=== PATIENT | female | born 1970 | race Caucasian/White ===

== ENCOUNTER 2024-12-15 09:44 | Outpatient (REF) | payer OTHER, SELFPAY ==
[2024-12-15 13:43] LABS: MANUAL DIFF FLAG NO
[2024-12-15 13:52] LABS: Basophils Absolute Auto 0.1 X10*3/uL (0.0-0.2); Basophils Percent Auto 1.8 % (0-2); Eosinophils Absolute Auto 0.1 X10*3/uL (0.0-0.4); Hematocrit 46.7 % (37.0-47.0); Hemoglobin 15.2 g/dl (12.0-16.0); Imm Gran Abs Auto 0.01 X10*3/uL (0.00-0.03); Imm Gran Pct Auto 0.2 % (0.0-0.4); Lymphocytes Absolute Auto 1.8 X10*3/uL (1.2-4.9); Lymphocytes Percent Auto 38.9 % (20-40); Mean Corpuscular HGB Conc 32.5 g/dl (31.0-35.0); Mean Corpuscular Hemoglobin 30.9 pg (27.0-33.0); Mean Corpuscular Volume 94.9 fL (80.0-98.0); Mean Platelet Volume 11.7 fL (9.4-12.3); Monocytes Absolute Auto 0.4 X10*3/uL (0.1-1.2); Monocytes Percent Auto 8.4 % (2-11); Neutrophils Absolute Auto 2.2 x10*3/uL (2.0-8.3); Neutrophils Percent Auto 48.7 % (45-73); Platelet Count 156 X10*3/uL (160-400); Red Blood Count 4.92 X10*6/uL (4.20-5.50); Red Cell Distribution Width 12.1 % (11.0-16.0); White Blood Count 4.5 X10*3/uL (4.8-10.8)
[2024-12-15 14:17] LABS: Alanine Aminotransferase 31 U/L (0-31); Anion Gap 8 (12-20); Aspartate Amino Transferase 38 U/L (5-31); Blood Urea Nitrogen 9 mg/dL (9-16); Calcium 10.1 mg/dL (8.4-10.2); Carbon Dioxide 28 mmol/L (22-29); Chloride 108 mmol/L (96-108); Cholesterol 282 mg/dL (<200); Estimated Glomerular Filt Rate > 60; Glucose Fasting 81 mg/dL (60-99); HDL Cholesterol 89 mg/dL (>40); LDL Cholesterol Calculated 178 mg/dL (<100); Potassium 4.2 mmol/L (3.3-5.1); Sodium 140 mmol/L (135-145); Triglycerides 75 mg/dL (<150)
[2024-12-15 14:21] LABS: Vitamin D 25-OH Total 93.2 ng/mL (>30)
== END 2024-12-15 09:45 | disposition home or self-care (01) ==
LOC: HO.HMGCLDS 09:44
PROVIDERS: PCP Internal Medicine; Visit Provider Internal Medicine
DX: Z00.01 Encounter for general adult medical examination with abnormal findings (principal); Z13.89 Encounter for screening for other disorder; E78.5 Hyperlipidemia, unspecified; Z78.0 Asymptomatic menopausal state; Z85.828 Personal history of other malignant neoplasm of skin; Z87.42 Personal history of other diseases of the female genital tract
CPT/HCPCS: 36415; 80048; 80061; 82306; 84450; 84460; 85025; 96127

== ENCOUNTER 2025-01-06 15:19 | Outpatient (REF) | payer OTHER, SELFPAY | END 2025-01-06 15:20 | disposition home or self-care (01) | LOC: HO.MAMMO 15:19 | PROVIDERS: PCP Internal Medicine; Visit Provider Internal Medicine | DX: Z12.31 Encounter for screening mammogram for malignant neoplasm of breast (principal) | CPT/HCPCS: 77063; 77067 ==

== ENCOUNTER → 2025-01-06 15:30 | Outpatient (BNV) | payer OTHER, SELFPAY | PROVIDERS: PCP Internal Medicine; Visit Provider Internal Medicine | DX: Z12.31 Encounter for screening mammogram for malignant neoplasm of breast (principal) | CPT/HCPCS: 77063; 77067 ==

== ENCOUNTER 2025-04-07 09:34 | Outpatient (REF) | payer OTHER, SELFPAY ==
[2025-04-13 15:23] LABS: HPV Genotype 16 Negative (Negative); HPV Genotype 18 Negative (Negative); HPV High Risk Negative (Negative)
== END 2025-04-07 09:35 | disposition home or self-care (01) ==
LOC: HO.LNP 09:34
PROVIDERS: PCP Internal Medicine; Visit Provider Advanced Practice Midwife
DX: Z01.419 Encounter for gynecological examination (general) (routine) without abnormal findings (principal); Z11.51 Encounter for screening for human papillomavirus (HPV); Z87.42 Personal history of other diseases of the female genital tract
CPT/HCPCS: 87626; 88175

== ENCOUNTER 2025-04-07 09:34 | Outpatient (AMB) | payer OTHER, SELFPAY ==
--- NOTE | 2025-04-07 09:37 | A.OFFVIS_ITS ---
Vital Signs 04/07/25 09:38 Height 5 ft 4 in Weight 139 lb BMI 23.9 BP 110/70 Intake Visit Reasons: New patient/Annual Intake Note: Last pap unsure maybe 1 abn pt c/o mood swings, hotflashes Game Tester: Game Tester Present (Lynda) Allergies No Known Allergies Allergy (Verified 04/07/25 09:38) HPI Comments Details: She is a postmenopausal woman presenting for her new patient annual vision care associate examination. She is doing well with vision care associate concerns: leakage of urine, full feeling after voiding. Urgent bowel movements. Admits to feeling depressed at times, isolated with working from home. Currently not sexually active in many year. Denies any vaginal dryness or irritation. STI testing offered; she declines. Attempting to eat a healthy diet, avoids dairy products, and stays active with exercise-hiking. Last pap smear; unknown, many years ago. Last mammogram; 2024. Colonoscopy is UTD. Denies any family history of ovarian or colon cancer. FH breast cancer. PFSH Medical History Fatigue History of Vaccine refused by patient Hx of abnormal cervical Pap smear Skin cancer screening Hx of basal cell carcinoma Dyslipidemia Surgical History Hx of wisdom tooth extraction Hx of colonoscopy Family History Mother Colorectal cancer, Onset Age: 77 Father Heart attack, Onset Age: 50 Maternal Grandmother Uterine cancer Family/Other History of breast cancer Paternal Aunt History of breast cancer Social History Housing: House Alcohol intake: current Alcohol intake frequency: holidays/special occasions only Patient Tobacco Use Status: Never used Tobacco e-Cigarette/Vaping Use: Never Used service: No Current occupational status: employed Current occupation: grants admin @ [employer] Current occupational exposures/hazards: No Cognitive needs: No Hearing needs: No Vision needs: Yes Female Reproductive History Menstrual Total pregnancies: 1 Full term: 0 Number of Living Children: 0 Ab induced: 1 History of abnormal pap smear: Yes Date of Mammogram: 01/06/25 (Birad 1) Review of Systems Const All systems reviewed & are unremarkable except as noted in HPI and below Reports as per HPI Eyes Reports no additional complaints ENT Reports no additional complaints Card Reports no additional complaints Resp Reports no additional complaints GI Reports as per HPI and Reports no additional complaints Reports as per HPI Musc Reports no additional complaints Skin/Breast Reports as per HPI Neuro Reports no additional complaints Psych Reports no additional complaints Endo Reports no additional complaints Eric/Lymph Reports no additional complaints Aller/Immun Reports no additional complaints Physical Exam Vital Signs: Last Vital Signs BP 110/70 04/07/25 09:38 BMI result Body Mass Index 23.9 Const General: cooperative, healthy appearing, no acute distress, well developed and alert Orientation/consciousness: patient oriented x3 HEENT Head: Yes normal to inspection Eyes General: appearance normal, both eyes and all related structures Neck Neck: Yes normal visual inspection Thyroid: Thyroid normal Chest Chest palpation & inspection: normal inspection of the chest and other (no puckering, dimpling, peau de orange, retraction, discharge, masses) Breast/axilla inspection: normal inspection of the breasts Breast/axilla palpation: normal palpation of the breasts Resp Effort & Inspection: normal respiratory effort GI Inspection: Yes normal to inspection Palpation (GI): Soft to palpation Rectal Exam - Female: deferred General: Yes bladder normal to palpation External Female Exam: normal external appearance and normal appearance of the urethra Speculum Exam - Vagina: normal appearance of the vagina, normal palpation, normal vaginal discharge and vagina atrophic Speculum Exam - Cervix: normal appearance of the cervix, normal palpation and Other cervical findings present (Atrophic changes bled slightly with Pap) Bimanual exam- vagina & uterus: normal bimanual exam, normal palpation, uterine size normal, bladder normal to palpation, normal palpation and non-tender Bimanual Exam- Adnexa, other: no masses Skin General skin exam: no rashes or lesions noted Rashes: no rashes Neuro General: patient oriented x3 Cognition (Neuro): normal cognition Extrem General: Yes normal to inspection Psych Attitude: cooperative Thought process: Normal thought process present Assessment & Plan Assessment & Plan (1) Hx of abnormal cervical Pap smear: Code(s): Z87.42 - Personal history of other diseases of the female genital tract Category: Medical Plan: Pap smear obtained today, await results for plan of care. (2) Encounter for well woman exam with routine gynecological exam: Code(s): Z - Encounter for gynecological examination (general) (routine) without abnormal findings Category: Medical Plan Discussed: Current recommendations for pap smears per ASCCP guidelines. Pap obtained. Breast awareness, periodic self breast exams and yearly mammogram. Maintain a healthy lifestyle, well balanced diet including Calcium 1,200 mg and Vitamin D 600 IU daily, and routine exercise. Avoid dietary triggers modified diet based on reactions and concerns. Handouts and calcium food sources, calcium and exercise given. Seeking a therapist be a use of psychology today, checking insurance coverage and notify my office if she needs a referral. Self care and nurturing, outside activities, involving herself with community and friends. Contact the office with any postmenopausal bleeding. Consider Urology consult and/or pelvic floor therapy for urinary symptoms. Patient verbalizes understanding and agrees to the plan of care. She was given opportunity to ask questions and all questions were answered to the best of my ability. RTO in 1 year for annual vision care associate exam. This note is constructed using voice recognition software. While every effort has been made to ensure accuracy, marketing financial analyst errors may have been included. Orders: Orders Vitamin D 25-OH (D2 and D3) Today R53.83 - Other fatigue HPV High risk Today Z - Encounter for gynecological examination (general) (routine) without abnormal findings, Z87.42 - Personal history of other diseases of the female genital tract Pap Smear Today Z - Encounter for gynecological examination (general) (routine) without abnormal findings, Z87.42 - Personal history of other diseases of the female genital tract Coding Level of Care Code New Pt Prev Care 40-64y(65663) Diagnoses Hx of abnormal cervical Pap smear Z87.42 Encounter for well woman exam with routine gynecological exam Z
[2025-04-07 09:38] VITALS: BP 110/70; BMI 23.9
== END 2025-04-07 10:41 | disposition home or self-care (01) ==
LOC: HO.HWS 09:34
PROVIDERS: PCP Internal Medicine; Visit Provider Advanced Practice Midwife
DX: Z01.419 Encounter for gynecological examination (general) (routine) without abnormal findings (principal); Z87.42 Personal history of other diseases of the female genital tract
CPT/HCPCS: 99386; 99459

== ENCOUNTER 2025-06-16 06:29 | Outpatient (REF) | payer OTHER, SELFPAY ==
--- OUTSIDE RECORDS SUMMARY | 2025-06-16 06:32 | XMS_ITS | Encounter Summary ---
Author Organization [facility] Address [address] [place] [phone] Phone Care Team Providers Care Ground Host/Hostess Name Role Phone Bessie Justice CNP Unavailable [phone] Bessie Justice CNP Primary Care Provider + [phone] Mellisa Norman MD Unavailable [phone] Darleen Gordon CNP Primary Care Provider [phone] Encounter Details Date Type Department Care Team (Late st Contact Info) Description 02/10/2023 Procedure Pass [facility] - [address] [place] [address] Social History Tobacco Use Types Packs/Day Years Used Date Smoking Tobacco: Never Smokeless Tobacco: Never Alcohol Use Standard Drinks/Week Comments Yes 1 (1 standard drink = 0.6 oz pur e alcohol) Child or Family Care Answer Date Record ed Do you have problems with on e of the following making it difficult for you to work, study, or receive health care? No 03/27/2022 Education Answer Date Recorded Are you interested in help w ith more adult education (for example, completing high school, GED, job training, learning the [place] language, technical skills, or developing parenting skills)? Yes 03/27/2022 Food Answer Date Recorded Within the past 6 months we worried whether our food would run out before we got money to buy more. Never True 03/27/2022 Within the past 6 months the food we bought just didn't last and we didn't have enough money to get more. Never True Residential Stability Answer Date Recor ded What is your housing situation today? I have easton berger 03/27/2022 How many times have you move d in the past 12 months? Zero (I did not move) 03/27/2022 Paying for Meds Answer Date Recorded Do you have trouble paying for medicines? No 03/27/2022 Paying Utility Bills Answer Date Record ed Do you have trouble paying your heating or elect ricity bill? No 03/27/2022 Transportation Answer Date Recorded Has the lack of transportati on kept you from medical appointments or from getting medications? No 03/27/2022 Unemployment Answer Date Recorded Are you currently unemployed or working on a part-time or temporary basis, and looking for work? No 03/27/2022 Comments No Sex and Gender Information Value Date Recorded Sex Assigned at Not on file Legal Sex Female 6:21 PM EST Gender Identity Not on file Sexual Orientation Not on file documented as of this encounter Plan of Treatment Not on file documented as of this encounter Visit Diagnoses Not on filedocumented in this encounter Additional Health Concerns Assessment Noted Time PHQ-2 Depression Total Score: 0 03/27/20 22 3:27 PM EDT documented as of this encounter Care Teams Ground Host/Hostess Relationship Specialty Start Date End Date Bessie Justice CNP [address] [place] [phone] [email or web address] PCP - General Family Medicine 08/12/22 02/05/24 Darleen Gordon CNP [address] [place] [address] [address] [place] [address] [email or web address] PCP - General Nurse Practitioner 02/06/24 Bessie Justice CNP [address] [place] [phone] [email or web address] Historical LMR Provider 09/11/17 Mellisa Norman MD [address] [place] [address] [address] [place] [address] [email or web address] Insurance Assigned Provider 02/28/24 10/02/24 documented as of this encounter Additional Source Comments The information contained in this document represents components of the legal health record. It is not the complete legal health record.[facility]
[2025-06-16 10:44] LABS: Alanine Aminotransferase 28 U/L (0-31); Aspartate Amino Transferase 37 U/L (5-31); Cholesterol 254 mg/dL (<200); HDL Cholesterol 79 mg/dL (>40); Triglycerides 97 mg/dL (<150)
[2025-06-16 11:18] LABS: Folate 6.7 ng/mL (> or = 4.0); Vitamin B12 317 pg/mL (200-900)
[2025-06-20 16:09] LABS: Vitamin D 25-OH, D2 <4 ng/mL; Vitamin D 25-OH, D3 48 ng/mL; Vitamin D 25-OH, Total 48 ng/mL (30-100)
== END 2025-06-16 06:30 | disposition home or self-care (01) ==
LOC: HO.HMGCLDS 06:29
PROVIDERS: Advanced Practice Midwife; PCP Internal Medicine; Visit Provider Internal Medicine
DX: E78.5 Hyperlipidemia, unspecified (principal); M79.10 Myalgia, unspecified site; R53.83 Other fatigue
CPT/HCPCS: 36415; 80061; 82306; 82550; 82607; 82746; 84450; 84460